=== PATIENT | male | born 1965 | race African-American/Black ===

== ENCOUNTER 2025-03-06 14:38 | Emergency (ER) | payer MEDICAID ==
[~2025-03-06] VITALS: Ht 182.9 cm; Wt 79.0 kg
[2025-03-06 14:48] VITALS: TEMP 36.7; O2SAT 100
[2025-03-06 17:35] VITALS: TEMP 98.1
[2025-03-06] MEDS: ACETAMINOPHEN 325MG TABLET PO ONE (17:35)
[2025-03-06] MEDS: IBUPROFEN 600MG TABLET PO ONE (17:35)
[2025-03-06] MEDS ORDERED: CYCL10TA21 MT (20:25)
[2025-03-06] MEDS ORDERED: IBUP-2029 MT (20:26)
[2025-03-06 21:02] VITALS: BP 164/81; PULSE 88; RESP 19; O2SAT 97
== END 2025-03-06 21:03 | disposition home or self-care (01) ==
LOC: ER 14:38
DX: R91.1 Solitary pulmonary nodule (principal); I10 Essential (primary) hypertension; E11.9 Type 2 diabetes mellitus without complications; V89.2XXA Person injured in unspecified motor-vehicle accident, traffic, initial encounter; Y93.89 Activity, other specified; Y92.410 Unspecified street and highway as the place of occurrence of the external cause; Y99.8 Other external cause status
CPT/HCPCS: 72131; 73030; 99284

== ENCOUNTER 2025-06-05 09:53 | Emergency (ER) | payer MEDICAID ==
[~2025-06-05] VITALS: Ht 180.3 cm; Wt 79.0 kg
[~2025-06-05 09:53] MED LIST: CYCL10TA21 MT; IBUP-2029 MT
[2025-06-05 09:55] VITALS: O2SAT 97
[2025-06-05] MEDS: BACITRACIN ZINC OINT UDPKT TOP ONE (10:43)
[2025-06-05] MEDS ORDERED: MUPI1OIN4 TP (11:15)
[2025-06-05] MEDS ORDERED: CEPH500T MT (11:15)
[2025-06-05 11:22] VITALS: BP 138/76; PULSE 92; RESP 20; TEMP 36.9; O2SAT 98
== END 2025-06-05 11:23 | disposition home or self-care (01) ==
LOC: ER 09:53
DX: B00.9 Herpesviral infection, unspecified (principal); L01.00 Impetigo, unspecified; E11.9 Type 2 diabetes mellitus without complications; I10 Essential (primary) hypertension; Z79.899 Other long term (current) drug therapy
CPT/HCPCS: 99283